=== PATIENT | male | born 1960 | race Hispanic/Latino ===

== ENCOUNTER 2016-10-11 21:14 | Emergency (ER) | payer MEDICARE, OTHER ==
[2016-10-11 21:35] VITALS: BP 158/96; PULSE 76; RESP 20; TEMP 98.2; O2SAT 96
--- NOTE | 2016-10-11 22:31 | C.PDOC ---
History Of Present Illness 56 year old male with a Hx of arthritis who presents to the ER with a complaint of intermittent left knee pain for the past 3 weeks. Patient states he has been taking ibuprofen occasionally as needed; however, he comes in today because the pain has increased in the last 3 days. Denies recent trauma/fall, weakness, or numbness. Time Seen by Provider: 10/11/16 21:52 Chief Complaint (Nursing): Lower Extremity Problem/Injury History Per: Patient History/Exam Limitations: no limitations Onset/Duration Of Symptoms: Days Current Symptoms Are (Timing): Still Present Recent travel outside of the [place]: No Past Medical History Reviewed: Historical Data, Nursing Documentation, Vital Signs Vital Signs: Last Vital Signs Temp 98.2 F 10/11/16 21:31 Pulse 76 10/11/16 21:31 Resp 20 10/11/16 21:31 BP 158/96 H 10/11/16 21:31 Pulse Ox 96 10/11/16 22:34 - Medical History PMH: Arthritis, Back Problems, Depression, Diabetes, HTN, Hypercholesterolemia, Chronic Pain (Back) Surgical History: Cholecystectomy Family History: States: Unknown Family Hx - Social History Hx Tobacco Use: Yes Hx Alcohol Use: No Hx Substance Use: No - Immunization History Hx Tetanus Toxoid Vaccination: No Hx Influenza Vaccination: No Hx Pneumococcal Vaccination: No Review Of Systems Musculoskeletal: Positive for: Leg Pain Neurological: Negative for: Weakness, Numbness Physical Exam - Physical Exam Appears: Non-toxic Skin: Normal Color, Warm, Dry Head: Atraumatic, Normacephalic Oral Mucosa: Moist Extremity: Normal ROM (x4), Tenderness (Minimal to left knee), No Pedal Edema, No Calf Tenderness, No Deformity, No Swelling, No Other (Effusion, Erythema, Warmth) Neurological/Psych: Oriented x3, Normal Speech, Normal Cognition Gait: Steady ED Course And Treatment O2 Sat by Pulse Oximetry: 96 (Room air) Pulse Ox Interpretation: Normal Progress Note: Toradol IM administered. On reevaluation, patient's pain has much improved; patient placed in knee brace for additional support. Will discharge home with instructions to follow up with PMD. Disposition Counseled Patient/Family Regarding: Diagnosis, Need For Followup, Rx Given - Disposition Disposition: HOME/ ROUTINE Disposition Time: 22:28 Condition: STABLE Additional Instructions: Please follow up with PMD Continue motrin PO Apply warm and cold compress alternately to knee Return to ER if worse Instructions: Arthralgia (ED) Forms: [employer] (Urdu) - Clinical Impression Clinical Impression: Arthralgia of knee, left - Scribe Statement The provider has reviewed the documentation as recorded by the Scribfranc Tirado All medical record entries made by the Scribe were at my direction and personally dictated by me. I have reviewed the chart and agree that the record accurately reflects my personal performance of the history, physical exam, medical decision making, and the department course for this patient. I have also personally directed, reviewed, and agree with the discharge instructions and disposition.
== END 2016-10-11 22:48 | disposition home or self-care (01) ==
LOC: C.ER 21:14
DX: M25.562 Pain in left knee (principal)

== ENCOUNTER 2017-09-13 07:15 | Day surgery (SDC) | payer OTHER ==
--- NOTE | 2017-09-13 09:24 | CP.SDSHP ---
Same Day Surgery H & P - History Proposed Procedure: COLONSCOPY Pre-Op Diagnosis: SEE NOTES - Previous Medical/Surgical History Cardiac: Hypertension Endocrine/Metabolic: Other Misc: Other Pain: 2.Mild Pain - Allergies Allergies: Allergies No Known Allergies Allergy (Verified 09/13/17 08:22) - Physical Exam General Appearance: N Vital Signs: Vital Signs 09/13/17 08:00 Temperature 97.6 F Pulse Rate 64 Respiratory 19 Rate Blood Pressure 147/89 O2 Sat by Pulse 97 Oximetry Mental Status: Alert & Oriented x3 Neuro: WNL Heart: Other Lungs: WNL GI: WNL - {Optional Preform as Required} Breast: WNL Abdomen: Other Rectal: Other Integument: WNL : WNL Ortho: Other ENT: WNL - Impression Pt. Evaluated Today:Candidate for Anesthesia & Procedure: Yes - Date & Time Time: 09:24 Short Stay Discharge - Short Stay Discharge Admitting Diagnosis/Reason for Visit: SCREENING Disposition: HOME/ ROUTINE
[2017-09-13] MEDS ORDERED: Lactated Ringer's 1,000 ML IV ONE (09:26)
[2017-09-13] MEDS ORDERED: Lidocaine Hydrochloride 5 ML INJ ONE (09:41)
[2017-09-13] MEDS ORDERED: Propofol 10 mg/ml Inj (20 ML) ONE (09:41)
[2017-09-13] MEDS ORDERED: Belladonna-Phenobarbital PO ONE (10:05)
[2017-09-13] MEDS ORDERED: Ciprofloxacin 400mg/200ml D5W 400 MG/200 ML BAG IVPB ONE (10:30)
[2017-09-13 14:11] VITALS: TEMP 97.4; O2SAT 99
[2017-09-13 14:13] VITALS: RESP 18
[2017-09-13 14:18] VITALS: BP 136/70; PULSE 67
== END 2017-09-13 11:30 | disposition home or self-care (01) ==
LOC: C.ENDO 07:15
PROVIDERS: ATTEND Specialist
DX: Z12.11 Encounter for screening for malignant neoplasm of colon (principal); D12.4 Benign neoplasm of descending colon; K64.8 Other hemorrhoids; I10 Essential (primary) hypertension
CPT/HCPCS: 45380; 82948; 88305; J0744; J2704; J7120

== ENCOUNTER 2018-03-07 12:41 | Emergency (ER) | payer OTHER ==
[2018-03-07 13:25] VITALS: RESP 18; TEMP 98.3; O2SAT 98
[2018-03-07] MEDS ORDERED: Oxycodone/Acetaminophen 5/325 mg Tab PO STA (13:26)
[2018-03-07] MEDS ORDERED: Oxycodone/Acetaminophen 5/325 mg Tab ONE (13:33)
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
--- NOTE | 2018-03-07 14:07 | RAD ---
Date of service: 03/07/2018 PROCEDURE: Right Knee Radiographs. HISTORY: pain COMPARISON: None. FINDINGS: BONES: No fracture seen. Bone mineralization appears abnormal along the visualized tibial diaphysis and metaphysis. Ground-glass like opacity here is seen. And may be under tubulation noted. No pathological fracture seen. Fibrous dysplasia is 1 consideration. Recommend comparison with any outside studies to assess for chronicity of this marrow pathology. If no outside studies exists then consider MRI of the right femur and tibia. This also similar altered marrow pathology with endosteal scalloping in the portions of the more proximal femoral diaphysis. JOINTS: Tricompartmental joint space narrowing. No prominent spurs seen. JOINT EFFUSION: Probable small joint effusion present. OTHER FINDINGS: Partially visualized posterior thigh vascular calcifications noted. IMPRESSION: Abnormal bone mineralization most conspicuous in the proximal tibia and mid femoral diaphysis. No pathological fracture seen. Fibrous dysplasia is 1 consideration. Other etiologies are not excluded in including of malignant marrow replacing processes. In no prior outside studies of this body part are available to evaluate stability, consider MRI of the right femur and right tibia for further evaluation.
[2018-03-07 15:06] VITALS: BP 138/79; PULSE 74
== END 2018-03-07 15:06 | disposition home or self-care (01) ==
LOC: C.ER 12:41
DX: G89.29 Other chronic pain (principal); M25.561 Pain in right knee; E11.9 Type 2 diabetes mellitus without complications; I10 Essential (primary) hypertension; E78.00 Pure hypercholesterolemia, unspecified; Z72.0 Tobacco use
CPT/HCPCS: 73562; 96372; 99284; J1885